=== PATIENT | male | born 1955 | race African-American/Black ===

== ENCOUNTER 2016-05-12 23:55 | Emergency (ER) | payer OTHER ==
[~2016-05-12 23:55] MED LIST: BYSTOLIC20 MG PO; DIAZEPAM PO; NABUMETONE PO; NORVASC10 MG PO
== END 2016-05-13 00:45 | disposition home or self-care (01) ==
LOC: CED 23:55
DX: S41.152A Open bite of left upper arm, initial encounter (principal); I10 Essential (primary) hypertension; E78.5 Hyperlipidemia, unspecified; W50.3XXA Accidental bite by another person, initial encounter; Y92.009 Unspecified place in unspecified non-institutional (private) residence as the place of occurrence of the external cause
CPT/HCPCS: 99283